=== PATIENT | female | born 1935 | race Caucasian/White ===

== ENCOUNTER 2016-11-11 04:56 | Inpatient (IN) | payer OTHER ==
[~2016-11-11] VITALS: Ht 167.6 cm; Wt 68.5 kg
[~2016-11-11 04:56] MED LIST: CAPT25TA3 PO; CARB-61 PO; HYDR-4023 PO; LINA145C PO; PRAV40TA PO
[2016-11-11 05:05] VITALS: BP 133/73; PULSE 62; RESP 18; TEMP 97.6; O2SAT 95
--- NOTE | 2016-11-11 05:05 | NUR ---
Placed in room 08 . Placed on lunchroom monitor, blood pressure machine and pulse oximeter. To gown for exam. Side rails up. Report given to ANGEL Russ.
--- NOTE | 2016-11-11 05:10 | NUR ---
Pt came in by BLS. Pt came from [facility] and the staff states she has been more confused than usual. Pt had a recent change in her meds. Upon assessment. Pt is AAOx3 with moments of confusion. No other injuries or complaints mentioned/noted. No distress noted.
--- NOTE | 2016-11-11 05:25 | NUR ---
ER Dr. Tejeda at bedside examining patient.
[2016-11-11] MEDS ORDERED: NACL 0.9% 1,000 ML IV ONE (05:31)
[2016-11-11 06:20] LABS: BASOPHILS # (AUTO) 0.1 K/uL (0.0-0.2); BASOPHILS % (AUTO) 1.8 % (0.0-2.0); EOSINOPHILS % (AUTO) 0.4 % (0.0-4.0); HEMOGLOBIN 13.6 g/dL (12.0-16.0); LYMPHOCYTES # (AUTO) 1.2 K/uL (1.0-5.5); LYMPHOCYTES % (AUTO) 14.8 % (20.5-51.5); MEAN CORPUSCULAR HEMOGLOBIN 29 pg (27-31); MEAN CORPUSCULAR HGB CONC 33 % (32-36); MEAN CORPUSCULAR VOLUME 87 fL (79.0-98.0); MONOCYTES # (AUTO) 0.7 K/uL (0.0-1.0); NEUTROPHILS # (AUTO) 5.9 K/uL (1.8-7.7); PLATELET COUNT (AUTO) 268 K/uL (130-430); RED BLOOD CELL COUNT(AUTO) 4.69 MIL/uL (4.2-6.2); RED CELL DISTRIBUTION WIDTH 14.5 % (9.0-15.0); WHITE BLOOD COUNT (AUTO) 7.9 K/uL (4.8-10.8)
[2016-11-11 06:29] LABS: ANION GAP 6 (5-15); CALCIUM 9.2 mg/dL (8.4-11.0); CHLORIDE 100 mmol/L (98-107); CREATININE 0.76 mg/dL (0.55-1.30); GLUCOSE 104 mg/dL (70-99); POTASSIUM 3.9 mmol/L (3.5-5.1); SODIUM SERUM 136 mmol/L (136-145); UREA NITROGEN, BLOOD 15 mg/dL (8-21)
[2016-11-11 06:34] LABS: ALBUMIN 3.1 g/dL (3.4-4.8); ASPARTATE AMINOTRANSFERASE 17 U/L (10-37); TOTAL BILIRUBIN 0.4 mg/dL (0.0-1.0)
[2016-11-11 06:51] LABS: ALANINE AMINOTRANSFERASE 5 U/L (12-78)
[2016-11-11 06:57] LABS: BILIRUBIN,URINE NEGATIVE (NEGATIVE); BLOOD, URINE NEGATIVE (NEGATIVE); CLARITY/URINE CLEAR (CLEAR); COLOR,URINE YELLOW (YELLOW); GLUCOSE,URINE NEGATIVE (NEGATIVE); KETONES,URINE 1+ (NEGATIVE); LEUKOCYTE ESTERASE ,URINE TRACE (NEGATIVE); NITRITE, URINE NEGATIVE (NEGATIVE); PH,URINE 6.5 (5.0-8.0); PROTEIN URINE TRACE (NEGATIVE)
[2016-11-11 07:00] LABS: BACTERIA,URINE FEW /HPF (None Seen); MUCUS,URINE None Seen /LPF (None Seen); RBC,URINE 0-3 /HPF (0-3)
--- NOTE | 2016-11-11 07:00 | NUR ---
Care and report endorsed to Amalia ORTIZ.
[2016-11-11 07:02] LABS: BARBITURATE, URINE NEGATIVE (NEG <=200); BENZODIAZEPINE, URINE NEGATIVE (NEG <=150); CANNABINOID, URINE NEGATIVE (NEG <=50); COCAINE, URINE NEGATIVE (NEG <=150); METHAMPHETAMINES SCREEN,URINE NEGATIVE (NEG <=500); OPIATE, URINE NEGATIVE (NEG <=100); PHENCYCLIDINE SCREEN,URINE NEGATIVE (NEG <=25); UR TRICYCLIC ANTIDEPRESSANTS NEGATIVE (NEG <=300); URINE AMPHETAMINE NEGATIVE (NEG <=500); URINE METHADONE NEGATIVE (NEG <=200); URINE OXYCODONE SCREEN NEGATIVE (NEG <=100); URINE PROPOXYPHENE SCREEN NEGATIVE (NEG <=300)
--- NOTE | 2016-11-11 07:15 | NUR ---
Recieved report from Geoffrey Russ. Patient is sitting on bed in no acute distress, will continue to monitor.
[2016-11-11] MEDS ORDERED: CAPTOPRIL 12.5 MG TABLET PO ONE (07:30)
[2016-11-11] MEDS ORDERED: DOCU-144 PO (07:33)
[2016-11-11] MEDS ORDERED: ASPI-1063 PO (07:33)
[2016-11-11] MEDS ORDERED: B CO PO (07:33)
[2016-11-11] MEDS ORDERED: CHOL50004 PO (07:33)
[2016-11-11] MEDS ORDERED: CARB-64 PO (07:33)
[2016-11-11] MEDS ORDERED: MULT-1021 PO (07:33)
--- NOTE | 2016-11-11 07:33 | NUR ---
Medication reconciliation completed with information provided by facility. Any prior medication reconciliation on file was reviewed and corrected.
--- NOTE | 2016-11-11 07:52 | NUR ---
pt ambulatory to restroom without assist.
--- NOTE | 2016-11-11 08:30 | NUR ---
Pt given meal tray
--- NOTE | 2016-11-11 09:15 | NUR ---
Patient is discharged but BP is still elevated at 192/104, dr perales notifiied. pt denies any symptoms or headache, or any complaints at this time.
--- NOTE | 2016-11-11 09:17 | NUR ---
ambulated to restroom, denies any complaints
[2016-11-11] MEDS ORDERED: cloNIDine HCL 0.1 MG TABLET PO ONE (09:30)
[2016-11-11] MEDS ORDERED: CARBIDOPA/LEVODOPA 25/100 MG TABLET PO ONE (09:30)
--- NOTE | 2016-11-11 10:00 | NUR ---
medicated pt per Md order
--- NOTE | 2016-11-11 10:55 | NUR ---
Dr perales notified of still elevated BP 196/113. will enter orders
[2016-11-11] MEDS ORDERED: hydrALAZINE HCL 20 MG/ML VIAL IVP ONE (11:00)
--- NOTE | 2016-11-11 11:30 | NUR ---
Gave report to linda regarding pt POC, made aware of the carbidopa-levodopa dose administered at 10am.
--- NOTE | 2016-11-11 12:06 | NUR ---
Pt BP is noted to have improved, 138/71, spoke to dr suarez regarding pt status. states she will speak to [facility] first.
--- NOTE | 2016-11-11 12:25 | NUR ---
dr perales spoke to linda from [facility], per dr perales, facility does not want to accept the patient so will try to admit
[2016-11-11] MEDS ORDERED: cefTRIAXone 1 GM IVPB PREMIX 50 ML IV ONE (12:45)
--- NOTE | 2016-11-11 13:25 | NUR ---
lab at bedside for blood draw
--- NOTE | 2016-11-11 13:32 | NUR ---
Patient will be admitted to care of dr veliz. Admitted to medsurg unit. Will go to room 121a. Summary report printed. Report given to davey.
--- NOTE | 2016-11-11 13:33 | NUR ---
ADMISSION NOTE Received patient from ER via tima, received report from PASCUAL ORTIZ. Patient admitted with diagnosis of ALOC. Patient oriented to hospital routine, call light, toileting and safety-patient verbalized understanding. Addendum: 11/11/16 at 1420 by Shanel Mckay RN Patient able answer simple question , oriented x2 , ambulate to bathroom with assist no dizziness , lunch served tolerate well w/o aspiration, call light , on bed alarm , safety precaution instructed verbalized understanding.
[2016-11-11 13:48] VITALS: BP 146/79; PULSE 79; RESP 18; TEMP 96; O2SAT 96
--- NOTE | 2016-11-11 14:11 | NUR ---
NEUROLOGY CONSULT Spoke with Crista regarding request for consultation with Dr. Schaefer ([phone]) for reason: ALOC.
--- NOTE | 2016-11-11 14:30 | NUR ---
initial assessment: patient awake, alert and confused. Ambulatory with assist. Skin intact. Bed alarm on, side rails up. call light within reach.
[2016-11-11] MEDS: D5/0.45 NS 1,000 ML IV SCH (14:53)
[2016-11-11 15:06] VITALS: BP 146/73; PULSE 76; RESP 19; TEMP 96; O2SAT 96
--- NOTE | 2016-11-11 16:20 | NUR ---
rounds: pt ambulatory assisted pt to the toilet and placed back to bed.
--- NOTE | 2016-11-11 16:56 | NUR ---
Nicky consult: Seen by Dr. Garcia, Neuro. and talk to pt.
--- NOTE | 2016-11-11 17:08 | NUR ---
rounds: assisted pt to the toilet, placed back to the bed and repositioned for comfort.
--- NOTE | 2016-11-11 18:30 | NUR ---
rounds: pt having dinner. no distress noted.
--- NOTE | 2016-11-11 18:41 | NUR ---
closing notes: pt on bed. stable. alarm on. side rails up. informed pt to call for help. verbalized understanding. call light within reach. report will be given to incoming nurse.
[2016-11-11 20:00] VITALS: BP 152/81; PULSE 78; RESP 18; TEMP 98.2; O2SAT 95
--- NOTE | 2016-11-11 20:00 | NUR ---
Initial Notes Received patient laying in bed, awake, alert, oriented x2. Patient seems restless, easily oriented and consoled. Patient denies any acute distress or pain at this time. Breathing even and unlabored on room air. IV site patent/clean/dry. Educated patient on use of call light for assistance and fall precautions, patient verbalized understanding. Fall precautions in place, bed lowest position, bed rails up x3, bed alarm in use, call light in hand, room close to nursing station. Needs addressed. Will continue to monitor for changes and safety.
--- NOTE | 2016-11-11 22:18 | NUR ---
Rounds Patient resting in bed with eyes closed, easily aroused upon nurse entering room. No distress or pain noted/reported. Breathing even and unlabored. Patient denies any needs. IV site patent/clean/dry. Call light in hand, fall precautions in place. Will continue to monitor.
[2016-11-12] VITALS (7 sets, daily range): BP systolic 128–199; BP diastolic 79–110; PULSE 73–90; RESP 16–20; TEMP 97.6–98.1; O2SAT 95–97
--- NOTE | 2016-11-12 | NUR ---
Rounds Patient resting in bed with eyes closed, easily aroused. Patient denies any acute distress or pain. Breathing even and unlabored. BP elevated, Dr. Lomas paged for orders. Needs addressed. Call light in hand. Will continue to monitor.
--- NOTE | 2016-11-12 00:29 | NUR ---
paged for Dr Lomas, dialed . s/w Madelaine.
--- NOTE | 2016-11-12 00:39 | NUR ---
received call from dr. veliz, spoke to md, report pt bp is 190/110, hr-78. md order clonidine 0.1mg po q6hprn for sbp> 160. covering primary rn.
[2016-11-12] MEDS: cloNIDine HCL 0.1 MG TABLET PO PRN ×2 (01:04→08:26)
--- NOTE | 2016-11-12 02:15 | NUR ---
Rounds Patient resting in bed, awake, confused, attempted to reoriented patient to surroundings. Patient frequently attempting to get out of bed unassisted, stating she wants to go shopping. Patient in no apparent distress. Denies any pain or needs. IV site patent/clean/dry. Call light in hand, fall precautions in place. Will continue to monitor.
[2016-11-12] MEDS: D5/0.45 NS 1,000 ML IV SCH (02:20)
--- NOTE | 2016-11-12 04:14 | NUR ---
Rounds Patient resting in bed with eyes closed, easily aroused. Patient denies any acute distress or pain. Breathing even and unlabored. IV site patent/clean/dry. Needs addressed. Incontinence care provided. Patient repositioned for comfort. Call light in hand, fall precautions in place. Will continue to monitor.
--- NOTE | 2016-11-12 06:27 | NUR ---
Closing Notes Patient resting in bed, awake, continues to confused on/off, reoriented to surroundings frequently. Patient denies any distress or pain at this time. Breathing even and unlabored on room air. IV site patent/clean/dry, no S/S infection/infiltration noted. Needs addressed throughout shift. Call light in hand, fall precautions in place. Will continue to monitor for changes and safety and endorse all patient care/needs to oncoming nurse.
[2016-11-12 06:50] LABS: BASOPHILS % (AUTO) 0.2 % (0.0-2.0); EOSINOPHILS % (AUTO) 0.1 % (0.0-4.0); HEMOGLOBIN 14.7 g/dL (12.0-16.0); LYMPHOCYTES # (AUTO) 1.1 K/uL (1.0-5.5); LYMPHOCYTES % (AUTO) 10.6 % (20.5-51.5); MEAN CORPUSCULAR HEMOGLOBIN 29 pg (27-31); MEAN CORPUSCULAR HGB CONC 33 % (32-36); MEAN CORPUSCULAR VOLUME 88 fL (79.0-98.0); MONOCYTES # (AUTO) 0.8 K/uL (0.0-1.0); MONOCYTES % (AUTO) 7.1 % (1.7-9.3); NEUTROPHILS # (AUTO) 8.8 K/uL (1.8-7.7); PLATELET COUNT (AUTO) 319 K/uL (130-430); RED BLOOD CELL COUNT(AUTO) 5.11 MIL/uL (4.2-6.2); RED CELL DISTRIBUTION WIDTH 14.2 % (9.0-15.0); WHITE BLOOD COUNT (AUTO) 10.7 K/uL (4.8-10.8)
[2016-11-12 07:01] LABS: ALANINE AMINOTRANSFERASE 15 U/L (12-78); ALBUMIN 3.2 g/dL (3.4-4.8); ANION GAP 10 (5-15); ASPARTATE AMINOTRANSFERASE 18 U/L (10-37); CALCIUM 9.3 mg/dL (8.4-11.0); CHLORIDE 94 mmol/L (98-107); CREATININE 0.54 mg/dL (0.55-1.30); GLUCOSE 113 mg/dL (70-99); POTASSIUM 3.6 mmol/L (3.5-5.1); SODIUM SERUM 131 mmol/L (136-145); TOTAL BILIRUBIN 0.4 mg/dL (0.0-1.0); TOTAL PROTEIN, SERUM 7.4 g/dL (6.4-8.3); UREA NITROGEN, BLOOD 8 mg/dL (8-21)
--- NOTE | 2016-11-12 08:00 | NUR ---
OPENING NOTE RECEIVED REPORT FROM NIGHT NURSE, PATIENT IS RESTING COMFORTABLY IN BED WITH NO COMPLAINTS OF PAIN, NO NOTED DISTRESS, DISCOMFORT OR SOB. PATIENT IS ALERT AND ORIENTED AND ABLE TO COMMUNICATE NEEDS TO STAFF. PATIENT IS AMBULATORY WITH ASSISTANCE. PATIENT IS EDUCATED NOT TO GET UP WITHOUT ASSISTANCE. BED ALARM IS ON AND BED IS IN LOWEST POSITION. CALL LIGHT IS WITHIN REACH AND WILL CONTINUE TO MONITOR.
--- NOTE | 2016-11-12 09:15 | NUR ---
NOTE DR MALDONADO WAS HERE TO SEE THE PATIENT AND SHE STATED TO CONTINUE TO SINEMET THAT DR OZUNA PUT INTO HIS PROGRESS NOTES WHICH WAS NOTED AND CARRIED OUT. DR MALDONADO IS AT BEDSIDE. WILL CONTINUE TO MONITOR.
[2016-11-12] MEDS ORDERED: CARBIDOPA/LEVODOPA 25/100 MG TABLET PO SCH (12:00)
--- NOTE | 2016-11-12 12:02 | NUR ---
NOTE DR MALDONADO DISCHARGED THE PATIENT BACK TO [facility] AND STATED THAT SHE COULD GO TO A NON LOCKED FACILITY AND IS NOT IN DANGER OF HARMING HERSELF, DR OZUNA WAS PAGED AND HE STATED THAT THE PATIENT DID NOT NEED A LOCKED FACILITY OR IS IN DANGER OF HARMING HERSELF EITHER. THE FACILITY NEEDED A NOTE FROM THE DOCTOR FOR THE PATIENT TO BE ABLE TO RETURN TO [facility], DR MALDONADO STATED TO MAKE IT A TELEPHONE ORDER FROM DR OZUNA AND SHE WOULD CO SIGN IT WHICH WAS DONE AND A COPY WAS GIVEN TO THE DAUGHTER TO TAKE TO [facility]. THE PATIENT'S BP IS SLIGHTLY HIGH AND THE SINIMET WAS GIVEN TO HELP WITH THE SHAKING AND WILL RECEHCK THE BP. [facility] WAS CALLED AND THEY STATED THAT NO ONE COULD SOCIAL SERVICES DESIGNEE THE PATIENT FROM THERE AND THAT THE DAUGHTER STATED THAT SHE WOULD PROVIDE TRANSPORTATION FOR THE PATIENT TO RETURN. WAITING FOR THE DAUGHTER TO RETURN BUT DISCHARGE PAPERWORK IS READY AND PATIENT IS GETTING DRESSED TO LEAVE. WILL CONTINUE TO MONITOR. BED IN LOWEST POSITION AND BED ALARM IS ON.
--- NOTE | 2016-11-12 13:38 | NUR ---
DISCHARGE PATIENT AND DAUGHTER AT BEDSIDE WERE GIVEN DISCHARGE EDUCATION AND PATIENT AND DAUGHTER VERBALIZED UNDERSTANDING. IV WAS TAKEN OUT AND ARM BAND WAS REMOVED. STUDENT TOOK THE PATIENT TO THE CAR IN STABLE CONDITION WITH NO NOTED DISTRESS, DISCOMFORT OR SOB. BLOOD PRESSURE WAS 128/79, HR WAS 90 AND 02 SAT WAS 96% ON ROOM AIR AND TEMP WAS 98.1. PATIENT GOT INTO THE CAR WITH NO COMPLICATIONS
[2016-11-12] MEDS ORDERED: CEFTRIAXONE SOD 1 GM/ D5W 50 ML IV SCH ×2 (14:00)
[2016-11-12] MEDS ORDERED: cefTRIAXone 1 GM IVPB PREMIX 50 ML IV SCH (14:00)
--- NOTE | 2016-11-15 12:03 | NUR ---
Discharge Follow Up Phone Call: [facility] called and spoke with pt's dtr, Anaid ([phone]). Pt's dtr states that [facility] was going to fill pt's prescriptions; pt has a follow up appointment scheduled with PCP, Dr. Marin, on 11/16/16. Pt's dtr did not express any other needs or concerns and denied the need for additional follow up at this time. [facility] called [facility] ([phone]) and spoke with the nurse. [facility] nurse states that pt is doing "about the same"; there are no questions regarding pt's discharge or medication instructions. [facility] nurse did not express any other needs or concerns at this time and denied the need for additional follow up at this time. No further follow up phone calls required at this time.
== END 2016-11-12 13:38 | disposition home or self-care (01) | DRG 689 ==
LOC: SED 04:56 → SMU 13:14
DX: N39.0 Urinary tract infection, site not specified (principal); G93.41 Metabolic encephalopathy; R44.3 Hallucinations, unspecified; G20 Parkinson's disease; I10 Essential (primary) hypertension; Z82.49 Family history of ischemic heart disease and other diseases of the circulatory system; Z87.891 Personal history of nicotine dependence; Z91.81 History of falling; T42.8X5A Adverse effect of antiparkinsonism drugs and other central muscle-tone depressants, initial encounter
CPT/HCPCS: 36415; 70450-TC; 71010; 80053; 80307; 81000-TC; 83605; 84484; 85025; 87040-TC; 87086; 93005; 96365; 96375; 99285; J0360; J0696; J7030; J7060

== ENCOUNTER 2016-11-14 17:31 | Emergency (ER) | payer OTHER ==
[~2016-11-14] VITALS: Ht 167.6 cm; Wt 63.5 kg
[~2016-11-14 17:31] MED LIST changes: +ASPI-1063 PO; +B CO PO; +CARB-64 PO; +CHOL50004 PO; +DOCU-144 PO; +MULT-1021 PO
[2016-11-14 17:33] VITALS: BP 124/67; PULSE 72; RESP 18; TEMP 98.3; O2SAT 94
[2016-11-14] MEDS ORDERED: PIPERACILLIN/TAZO 3.38 GM in NS 50 ML IV ONE (17:45)
[2016-11-14] MEDS ORDERED: PIPERACILLIN/TAZOBACTAM 3.375 GM/VIAL (ZOSYN) IV ONE (17:57)
[2016-11-14 17:58] LABS: BASOPHILS # (AUTO) 0.1 K/uL (0.0-0.2); BASOPHILS % (AUTO) 1.5 % (0.0-2.0); EOSINOPHILS % (AUTO) 0.2 % (0.0-4.0); HEMATOCRIT 43.4 % (36-48); HEMOGLOBIN 14.4 g/dL (12.0-16.0); LYMPHOCYTES % (AUTO) 10.4 % (20.5-51.5); MEAN CORPUSCULAR HEMOGLOBIN 29 pg (27-31); MEAN CORPUSCULAR HGB CONC 33 % (32-36); MEAN CORPUSCULAR VOLUME 88 fL (79.0-98.0); MONOCYTES # (AUTO) 0.9 K/uL (0.0-1.0); NEUTROPHILS # (AUTO) 7.6 K/uL (1.8-7.7); NEUTROPHILS % (AUTO) 78.9 % (40.0-70.0); PLATELET COUNT (AUTO) 341 K/uL (130-430); RED BLOOD CELL COUNT(AUTO) 4.96 MIL/uL (4.2-6.2); RED CELL DISTRIBUTION WIDTH 13.8 % (9.0-15.0); WHITE BLOOD COUNT (AUTO) 9.6 K/uL (4.8-10.8)
[2016-11-14 18:07] LABS: PROTHROMBIN TIME 10.6 SECS (9.5-12.5)
[2016-11-14 18:18] LABS: ANION GAP 8 (5-15); CALCIUM 9.4 mg/dL (8.4-11.0); CHLORIDE 94 mmol/L (98-107); GLUCOSE 126 mg/dL (70-99); POTASSIUM 3.7 mmol/L (3.5-5.1); SODIUM SERUM 132 mmol/L (136-145)
[2016-11-14 18:19] LABS: ALANINE AMINOTRANSFERASE 6 U/L (12-78); ALBUMIN 3.4 g/dL (3.4-4.8); ASPARTATE AMINOTRANSFERASE 16 U/L (10-37); CREATININE 1.26 mg/dL (0.55-1.30); LIPASE 167 U/L (73-393); TOTAL BILIRUBIN 0.3 mg/dL (0.0-1.0); TOTAL PROTEIN, SERUM 7.1 g/dL (6.4-8.3); UREA NITROGEN, BLOOD 34 mg/dL (8-21)
[2016-11-14 18:37] LABS: BILIRUBIN,URINE NEGATIVE (NEGATIVE); BLOOD, URINE NEGATIVE (NEGATIVE); CLARITY/URINE SL HAZY (CLEAR); COLOR,URINE YELLOW (YELLOW); GLUCOSE,URINE NEGATIVE (NEGATIVE); KETONES,URINE 1+ (NEGATIVE); LEUKOCYTE ESTERASE ,URINE NEGATIVE (NEGATIVE); NITRITE, URINE NEGATIVE (NEGATIVE); PH,URINE 5.5 (5.0-8.0); PROTEIN URINE TRACE (NEGATIVE); UROBILINOGEN,URINE 0.2 (0.2-1.0)
[2016-11-14 18:57] LABS: BACTERIA,URINE FEW /HPF (None Seen); MUCUS,URINE None Seen /LPF (None Seen); URINE AMORPHOUS URATE 3+ /HPF (None Seen); WBC,URINE 0-3 /HPF (0-3)
[2016-11-14 20:03] VITALS: BP 122/68; PULSE 75; RESP 17; TEMP 98.2; O2SAT 96
== END 2016-11-14 20:03 | disposition home or self-care (01) ==
LOC: SED 17:31
DX: Z00.01 Encounter for general adult medical examination with abnormal findings (principal); R32 Unspecified urinary incontinence; I10 Essential (primary) hypertension; G20 Parkinson's disease; M81.0 Age-related osteoporosis without current pathological fracture; G83.9 Paralytic syndrome, unspecified
CPT/HCPCS: 36415; 71010; 80053; 81000; 83605; 83690; 85025; 85610; 87040; 93005; 96365; 99285; J2543; 96374; 96375

== ENCOUNTER 2016-12-18 02:56 | Emergency (ER) | payer OTHER ==
[~2016-12-18] VITALS: Ht 167.6 cm; Wt 70.8 kg
--- NOTE | 2016-12-18 02:56 | NUR ---
Patient to ER bed 1 to gown for evaluation. Side rails up. Report given to RN.
[2016-12-18 02:59] VITALS: BP 193/100; PULSE 86; RESP 22; TEMP 98.4; O2SAT 97
--- NOTE | 2016-12-18 03:00 | NUR ---
Patient sent to ER by [facility] after patient C/O generalized weakness & body aches. Patient denies pain, afebrile, denies N/V/D. AAox4, unlabored breathing, no signs of acute distress.
--- NOTE | 2016-12-18 03:02 | NUR ---
ER MD Vieira aware of BP
--- NOTE | 2016-12-18 03:14 | NUR ---
ER MD Vieira at bedside for evaluation
[2016-12-18] MEDS ORDERED: hydrALAZINE HCL 20 MG/ML VIAL IVP ONE (03:30)
[2016-12-18] MEDS ORDERED: NACL 0.9% 1,000 ML IV ONE (03:30)
[2016-12-18] MEDS ORDERED: cloNIDine HCL 0.1 MG TABLET PO ONE ×2 (03:30→06:30)
--- NOTE | 2016-12-18 03:40 | NUR ---
# 20 gauge angiocath placed to left forearm. Use of asceptic technique. Opsite placed over site. Blood return noted. Blood for lab drawn from site including lactic & blood cultures. Flushed with 10 cc of normal saline. No evidence of infiltration noted. Patient tolerated well.
[2016-12-18 04:06] LABS: BASOPHILS # (AUTO) 0.1 K/uL (0.0-0.2); BASOPHILS % (AUTO) 0.9 % (0.0-2.0); EOSINOPHILS # (AUTO) 0.1 K/uL (0.0-0.4); EOSINOPHILS % (AUTO) 0.7 % (0.0-4.0); HEMATOCRIT 41.9 % (36-48); HEMOGLOBIN 14.1 g/dL (12.0-16.0); LYMPHOCYTES # (AUTO) 1.6 K/uL (1.0-5.5); LYMPHOCYTES % (AUTO) 18.1 % (20.5-51.5); MEAN CORPUSCULAR HEMOGLOBIN 30 pg (27-31); MEAN CORPUSCULAR HGB CONC 34 % (32-36); MEAN CORPUSCULAR VOLUME 89 fL (79.0-98.0); MONOCYTES # (AUTO) 0.6 K/uL (0.0-1.0); NEUTROPHILS # (AUTO) 6.5 K/uL (1.8-7.7); NEUTROPHILS % (AUTO) 73.3 % (40.0-70.0); PLATELET COUNT (AUTO) 291 K/uL (130-430); RED CELL DISTRIBUTION WIDTH 14.3 % (9.0-15.0); WHITE BLOOD COUNT (AUTO) 8.9 K/uL (4.8-10.8)
[2016-12-18 04:16] LABS: INR 0.9 (0.8-1.2); PROTHROMBIN TIME 9.8 SECS (9.5-12.5)
[2016-12-18 04:54] LABS: BILIRUBIN,URINE NEGATIVE (NEGATIVE); BLOOD, URINE NEGATIVE (NEGATIVE); CLARITY/URINE CLEAR (CLEAR); COLOR,URINE YELLOW (YELLOW); GLUCOSE,URINE NEGATIVE (NEGATIVE); KETONES,URINE NEGATIVE (NEGATIVE); LEUKOCYTE ESTERASE ,URINE NEGATIVE (NEGATIVE); NITRITE, URINE NEGATIVE (NEGATIVE); PH,URINE 6.5 (5.0-8.0); PROTEIN URINE NEGATIVE (NEGATIVE); UROBILINOGEN,URINE 0.2 (0.2-1.0)
[2016-12-18 05:00] LABS: ANION GAP 5 (5-15); CALCIUM 9.1 mg/dL (8.4-11.0); CHLORIDE 97 mmol/L (98-107); CREATININE 0.75 mg/dL (0.55-1.30); GLUCOSE 108 mg/dL (70-99); POTASSIUM 4.1 mmol/L (3.5-5.1); SODIUM SERUM 132 mmol/L (136-145); UREA NITROGEN, BLOOD 17 mg/dL (8-21)
[2016-12-18 05:06] LABS: ALANINE AMINOTRANSFERASE 7 U/L (12-78); ALBUMIN 3.4 g/dL (3.4-4.8); ASPARTATE AMINOTRANSFERASE 18 U/L (10-37); TOTAL BILIRUBIN 0.6 mg/dL (0.0-1.0); TOTAL PROTEIN, SERUM 6.7 g/dL (6.4-8.3)
--- NOTE | 2016-12-18 05:20 | NUR ---
pt's daughter Antionette called regarding pt/s status. notified of pt's discharge and need for transportation back to [facility]. antionette stated she would be here in 2 hours.
[2016-12-18] MEDS ORDERED: LORazepam 2 MG/ML VIAL (FOR ER USE) IM ONE (06:45)
[2016-12-18] MEDS ORDERED: hydrALAZINE HCL 20 MG/ML VIAL IM ONE (07:30)
--- NOTE | 2016-12-18 07:30 | NUR ---
Received report from ANGEL Nelson. Pt aaox3. Room air. Pt states she wants to go home. Hypertensive at this time. No s/s distress at this time. Denies pain. Waiting for minervaer to pick her up. Will continue to monitor.
[2016-12-18 07:50] VITALS: BP 164/88; PULSE 79; RESP 20; TEMP 98.3; O2SAT 97
--- NOTE | 2016-12-18 07:50 | NUR ---
Patient given written and verbal discharge instructions and verbalizes understanding. ER MD discussed with patient the results and treatment provided. Patient in stable condition. ID arm band removed. IV catheter removed by RN earlier in the shift per pt request, intact and dressing applied, no active bleeding. Patient educated on pain management and to follow up with PMD. Pain Scale 0/10. Opportunity for questions provided and answered.
== END 2016-12-18 07:50 | disposition home or self-care (01) ==
LOC: SED 02:56
DX: I10 Essential (primary) hypertension (principal); G83.9 Paralytic syndrome, unspecified; G20 Parkinson's disease; F02.80 Dementia in other diseases classified elsewhere, unspecified severity, without behavioral disturbance, psychotic disturbance, mood disturbance, and anxiety; Z79.82 Long term (current) use of aspirin
CPT/HCPCS: 36415; 71010; 80053; 81003; 83605; 84484; 85025; 85610; 85730; 93005; J0360; J2060; J7030; 96361; 96372; 96374; 99285